=== PATIENT | female | born 1980 | race Caucasian/White ===

== ENCOUNTER 2016-04-30 15:58 | Inpatient (IN) | payer OTHER ==
--- NOTE | ~2016-04-30 | CO ---
Unit #: [id number] #: [id number] Patient: JEANIE FOURNIER [id number] [facility] [address] [place] [address] [id number] I MR#: [id number] NAME: JEANIE FOURNIER. ROOM: P211 Age: 35 Sex: F Admission Date: 04/30/2016 : 1980 Attending Physician: Scout Cordero M.D. Primary Care Physician: Austin Austin M.D. CONSULTATION REPORT ORDERING PROVIDER Dr. Cordero. REASON FOR CONSULTATION Right ear pain. SUBJECTIVE The patient reports that for 1 month she has had right ear pain. She has a history of having cotton stuck in her ear in which she had to have lavage performed to get rid of it. She reports the pain is stabbing and it hurts to move the pinna of her ear. She denies any headache, any runny nose, or any facial congestion. OBJECTIVE Tympanic membrane on both right and left side show scarring, but no acute infection. No object noted in the canal. No redness of the canal. The patient did have tragal pain on the right side, but the remainder of her ear examination was unremarkable. ASSESSMENT Ear pain. PLAN Plan is to administer lidocaine drops as needed for pain. Dictated by... Cordell Peña/jorge TD: 05/03/2016 18:50 JOB #: [id number] Unit #: [id number] #: [id number] Patient: JEANIE FOURNIER CONSULTATION REPORT Page 1 of 1 X IVELISSE MAGALLANES APRN CONSULTATION REPORT
--- NOTE | ~2016-04-30 | PA ---
Unit #: [id number] #: [id number] Patient: JEANIE FOURNIER [id number] [facility] [address] [place] [address] [id number] I MR#: [id number] NAME: JEANIE FOURNIER ROOM: P211 Age: 35 Sex: F Admission Date: 04/30/2016 : 1980 Date of Assessment: Attending Physician: Scout Cordero M.D. Admitting Physician: Scout Cordero M.D. Primary Care Physician: Austin Austin M.D. PSYCHIATRIC ASSESSMENT DATE OF SERVICE 04/30/2016. IDENTIFYING DATA Ms. Fournier is a 35-year-old single white female, who is a resident of [place], [place], was self-referred to the hospital on voluntary basis. CHIEF COMPLAINT "I came in today because I'm detoxing off meth and heroin." HISTORY OF PRESENT ILLNESS Ms. Fournier is a 35-year-old single white female, who was self-referred to the hospital stating that she wants to detox off meth and heroin and "I was doing pretty good. I relapsed about 4 months ago. I was clean from 04/2015 to 12/2015 and my stomach is killing me. My gas is bad and I feel like I'm going to throw up, headache are real bad, and my body is aching real bad. I'm having real bad chills." She was seen to be in significant distress and discomfort and does report increasing depression, anxiety, irritability, disturbed sleep, appetite, poor energy level, psychomotor retardation, feelings of hopelessness and helplessness, and reports relationship with boyfriend is strained. She reports that she has contemplated suicide back in 2009 when she lost her phone, but currently she denies any suicidal ideations, intent, or plan. SUBSTANCE ABUSE HISTORY The patient has extensive history of substance abuse and dependence including alcohol, cocaine, cannabis, opioids, and methamphetamine, and currently it appears that methamphetamine and heroin has been her drug of choice. She reports that she has been using 0.5 g of IV heroin on daily basis and 0.5 g of methamphetamine on a weekly basis. PAST PSYCHIATRIC HISTORY The patient has a history of chemical dependency treatment at [facility], and review of the medical records indicate that currently she is not active in any treatment program, is not seeing a psychiatrist, not taking any psychotropic medications. PAST MEDICAL HISTORY Significant for history of cervical cancer. ALLERGIES Penicillin. Unit #: [id number] #: [id number] Patient: JEANIE FOURNIER PERSONAL AND SOCIAL HISTORY A 35-year-old white female, who reports that she is single and lives alone and has poor social support system. MENTAL STATUS EXAMINATION Young white female, who was casually dressed with a fair personal hygiene, appears to be in no acute distress or discomfort. She was awake and alert on interaction with intact orientation to time, place, and person. Her mood was anxious and depressed with a congruent affect. Her speech was slow and restricted in content. Her thought processes were disorganized with some looseness of association. She denies any suicidal or homicidal ideations, and also denies any auditory or visual hallucinations. Her insight and judgment remain significantly impaired. DIAGNOSTIC IMPRESSION Psychiatric: Opioid dependence, moderate and acute withdrawals; methamphetamine dependence, moderate; opioid-induced mood disorder. Medical: History of cervical cancer. Stressors: Moderate psychosocial stressors. TREATMENT PLAN 1. The patient has a history of substance abuse and mood disorder, and has been decompensating and will need inpatient hospitalization for detoxification, safety, and stabilization. We will start her on detox protocol. We will closely monitor for any worsening withdrawal symptoms. 2. Supportive therapy was provided to the patient. 3. Safe, structured, and nourishing environment will be provided. ESTIMATED LENGTH OF STAY 5 to 7 days. ABILITY TO HELP SELF Limited. WILLINGNESS TO HELP SELF The patient appears to be willing to help self. STRENGTHS 1. Communicative. 2. Cooperative. PROBLEMS 1. Chronic dysphoric symptoms. 2. Chronic chemical dependency. 3. Poor social support system. DISCHARGE CRITERIA This will be contingent upon the patient's ability to show resolution of her depression and anxiety and her ability to stay safe to herself, particularly after discharge from the hospital. Dictated by... Scout Cordero M.D. MOHIT/jorge Unit #: [id number] #: [id number] Patient: JEANIE FOURNIER TD: 05/01/2016 08:18 JOB #: [id number] PSYCHIATRIC ASSESSMENT Page 1 of 1 X Scout Cordero MD PSYCHIATRIC ASSESSMENT
--- NOTE | ~2016-04-30 | PN ---
Unit #: [id number] #: [id number] Patient: JEANIE FOURNIER [id number] [facility] [address] [place] [address] [id number] I MR#: [id number] NAME: JEANIE FOURNIER ROOM: P211 Age: 35 Sex: F Admission Date: 04/30/2016 : 1980 Attending Physician: Scout Cordero M.D. Admitting Physician: Scout Cordero M.D. Primary Care Physician: Mitzy Amaya PROGRESS NOTES DATE OF SERVICE: 05/03/2016 SUBJECTIVE Ms. Fournier is a 35-year-old white female who was seen today and chart was reviewed, and case was discussed with the staff. She reports being worried about having a court day tomorrow. Meanwhile, she has been doing better and has been calmer and has not shown any agitation or aggression and has been taking the medications and tolerating them fairly well. MENTAL STATUS EXAMINATION Middle-aged white female who was casually dressed with a fair personal hygiene and appears to be in no acute distress or discomfort. She was awake and alert on interaction with intact orientation. Her mood was anxious with a congruent affect. She denies any suicidal or homicidal ideation. Her insight and judgment remain slightly impaired. TREATMENT PLAN 1. We will continue on her current medications and treatment protocol. We will monitor her response to the medications and make further adjustments as needed. 2. We will continue to follow up. Dictated by... Mitzy Chavez/jorge TD: 05/05/2016 07:27 JOB #: [id number] [facility] PROGRESS NOTES Page 1 of 1 X Scout Cordero MD PROGRESS NOTE
--- NOTE | ~2016-04-30 | DS ---
Unit #: [id number] #: [id number] Patient: [facility] FOURNIER [id number] [facility] [address] [place] [address] [id number] MR#: [id number] NAME: JEANIE FOURNIER. ROOM: P211 Age: 35 Sex: F Admission Date: 04/30/2016 : 1980 Discharge Date: 05/06/2016 Attending Physician: Scout Cordero M.D. Primary Care Physician: Austin Austin M.D. DISCHARGE SUMMARY IDENTIFYING DATA Ms. Fournier is a 35-year-old single white female who is a resident of [place], [place] and was self-referred to the hospital on a voluntary basis. DISCHARGE DIAGNOSES Psychiatric: Opioid dependence, moderate and acute withdrawals; methamphetamine dependence, moderate; opioid-induced mood disorder. Medical: History of cervical cancer. Stressors: Moderate psychosocial stressors. HISTORY OF PRESENT ILLNESS Please see initial psychiatric evaluation for details. PAST PSYCHIATRIC HISTORY Please see initial psychiatric evaluation for details. PAST MEDICAL HISTORY Please see initial psychiatric evaluation for details. HOSPITAL COURSE The patient was admitted to the adult chemical dependency unit at [facility] and was oriented to the hospital environment. Routine p.r.n. medications were initiated, and she was started back on her home medications. Detox protocol was initiated and initially, the patient was seen to be very agitated, irritable; however, she was able to calm down and was able to participate and cooperate with treatment recommendation and was taking the medications regularly and is tolerating them fairly well and as such, was able to complete the detox and was willing to continue treatment on an outpatient basis. DISCHARGE MEDICATIONS None. DISCHARGE CONDITION Stable. PROGNOSIS Fair. Dictated by... Scout Cordero M.D. Unit #: [id number] #: [id number] Patient: JEANIE FOURNIER IAA/modl TD: 05/06/2016 18:45 JOB #: [id number] DISCHARGE SUMMARY Page 1 of 1 X Scout Cordero MD DISCHARGE SUMMARY
--- NOTE | ~2016-04-30 | PN ---
Unit #: [id number] #: [id number] Patient: JEANIE FOURNIER [id number] [facility] [address] [place] [address] [id number] I MR#: [id number] NAME: JEANIE FOURNIER ROOM: P211 Age: 35 Sex: F Admission Date: 04/30/2016 : 1980 Attending Physician: Scout Cordero M.D. Admitting Physician: Scout Cordero M.D. Primary Care Physician: Mitzy Amaya NOTES DATE 05/02/2016 DISCUSSION Ms. Fournier is a 35-year-old white female who was seen today and chart was reviewed and case was discussed with the staff. She had a rough day yesterday as she was on the detox unit and apparently her boyfriend was there as well and they disclose that. However, (1)___ fought out and the patient was then seen to be getting very agitated, irritable and inappropriate and started making comment that she was going to have sex with every male patient on the unit and was wandering around going to other patients room and was put on sexually acting out precautions. However, in light of her threatening behavior and her boyfriend being on the unit, it was decided that she will be moved to a different floor. On approach by me the patient was seen to be anxious, restless, but then was seen to showing very negative attitude and behavior. Has been confronted about her statements yesterday. She just laughed about it and refused to take responsibility for her agitated behavior as such it remains a poor prognose and we will continue to monitor her response to treatment interventions and we will make further adjustment as needed. Dictated by... Mitzy Chavez/valentina TD: 05/04/2016 04:06 JOB #: [id number] [facility] NOTES Page 1 of 1 X Scout Cordero MD X PROGRESS NOTE
--- NOTE | ~2016-04-30 | PN ---
Unit #: [id number] #: [id number] Patient: JEANIE FOURNIER [id number] [facility] [address] [place] [address] [id number] I MR#: [id number] NAME: JEANIE FOURNIER ROOM: P211 Age: 35 Sex: F Admission Date: 04/30/2016 : 1980 Attending Physician: Scout Cordero M.D. Admitting Physician: Scout Cordero M.D. Primary Care Physician: Mitzy Amaya PROGRESS NOTES DATE OF SERVICE: 05/01/2016 SUBJECTIVE Ms. Fournier is a 35-year-old white female with substance abuse and mood disorder, who was seen today and chart was reviewed and case was discussed with the staff. She has been anxious, withdrawn, and rather seclusive to herself. Meanwhile, she has been cooperative with the treatment recommendations and does appear to be in distress or discomfort she has been taking the medications and tolerating them fairly well. MENTAL STATUS EXAMINATION Young white female, who was casually dressed with a fair personal hygiene, and appears to be in distress or discomfort. She was awake and alert on interaction with intact orientation. Her mood was anxious with a congruent affect. Her speech was slow and goal directed. She denies any suicidal or homicidal ideations. Her insight and judgment remain slightly impaired. TREATMENT PLAN 1. We will continue her on her current medications and treatment protocol. We will monitor her response to the medications and make further adjustments as needed. 2. We will continue to follow up. Dictated by... Mitzy Chavez/jorge TD: 05/01/2016 08:13 JOB #: [id number] Unit #: [id number] #: [id number] Patient: JEANIE FOURNIER PROGRESS NOTES Page 1 of 1 X Scout Cordero MD PROGRESS NOTE
--- NOTE | ~2016-04-30 | PN ---
Unit #: [id number] #: [id number] Patient: JEANIE FOURNIER [id number] [facility] [address] [place] [address] [id number] I MR#: [id number] NAME: JEANIE FOURNIER. ROOM: P211 Age: 35 Sex: F Admission Date: 04/30/2016 : 1980 Attending Physician: Scout Cordero M.D. Admitting Physician: Scout Cordero M.D. Primary Care Physician: Mitzy Amaya PROGRESS NOTES DATE OF SERVICE 05/05/2016 DISCUSSION Ms. Fournier is a 35-year-old white female who was seen today. Chart was reviewed and case was discussed with the staff. She has been anxious and withdrawn though has not shown any agitation or irritability and has been calm and cooperative with the treatment recommendations and appears to be coming out of the detox without any complications. MENTAL STATUS EXAMINATION Young white female who is casually dressed with fair personal hygiene, appears to be in no acute distress or discomfort. She was awake and alert on interaction with intact orientation. Her mood is anxious with congruent affect. She denies any suicidal or homicidal ideations and also denies any auditory or visual hallucinations. Her insight and judgment remain slightly impaired. TREATMENT PLAN 1. We will continue her on her current medications and treatment protocol. We will monitor her response to the medications and make further adjustments as needed. 2. We will continue to follow up. Dictated by... Scout Cordero M.D. IAA/bzg TD: 05/06/2016 11:10 JOB #: [id number] Unit #: [id number] #: [id number] Patient: JEANIE FOURNIER PROGRESS NOTES Page 1 of 1 X Scout Cordero MD PROGRESS NOTE
--- NOTE | ~2016-04-30 | CO ---
Unit #: [id number] #: [id number] Patient: ALLISON FOURNIER [id number] [place] [address] [id number] I MR#: [id number] NAME: ALLISON FOURNIER. ROOM: P211 Age: 35 Sex: F Admission Date: 04/30/2016 : 1980 Attending Physician: Scout Cordero M.D. Primary Care Physician: Austin Austin M.D. Consultation Date: 05/01/2016 CONSULTATION REPORT SUBJECTIVE Allison is a 35-year-old with history of IV drug use. She was admitted with 2 abscesses. Please see H and P dated 04/30/2016 for description and outline of treatment. Dictated by... Edie Drummond P.A.-C. for Mitzy Correia/jorge TD: 05/02/2016 23:45 JOB #: [id number] CONSULTATION REPORT Page 1 of 1 X Edie Drummond CONSULTATION REPORT
--- NOTE | ~2016-04-30 | HP ---
Unit #: [id number] #: [id number] Patient: ALLISON FOURNIER [id number] [place] [address] [id number] I MR#: [id number] NAME: ALLISON FOURNIER. ROOM: P185 Age: 35 Sex: F Admission Date: 04/30/2016 : 1980 Attending Physician: Scout Cordero M.D. Admitting Physician: Scout Cordero M.D. Primary Care Physician: Austin Austin M.D. HISTORY AND PHYSICAL HISTORY OF PRESENT ILLNESS Allison is a 35 year old admitted to [facility] because of her continued drug use. She shoots heroin and methamphetamine. She has had other admissions to this facility for the same. PAST MEDICAL HISTORY 1. Long history of poly-illicit substance abuse to include IV drugs. 2. History of psoriasis. PAST SURGICAL HISTORY Hysterectomy. ALLERGIES Penicillin. SOCIAL HISTORY Smokes 1 pack per day. Drinks alcohol rarely. Admits to a long history of illicit substance abuse to include IV heroin and IV methamphetamine. FAMILY HISTORY Medically noncontributory. REVIEW OF SYSTEMS CONSTITUTIONAL: No fever or chills. HEENT: Denies any sore throat, ear pain or runny nose. CARDIOVASCULAR: Denies chest pain, irregular heart rhythm or palpitations. CHEST: Denies shortness of breath or cough. No hemoptysis. GASTROINTESTINAL: Denies nausea, vomiting, diarrhea or chronic constipation. ENDOCRINE: Denies history of increased thirst or urination. No recent significant weight loss or gain. GENITOURINARY: Denies dysuria, frequency, or hematuria. SKIN: Denies any rashes. HEMATOLOGIC: Denies history of increased bleeding or bruising. MUSCULOSKELETAL: Denies any hot, swollen joints. No generalized muscle pain. NEUROLOGIC: Denies problems with vision or speech. No frequent, severe headaches. No numbness, tingling or weakness in any extremities. Denies loss of bladder or bowel control. CURRENT MEDICATIONS No orders received at the time of this dictation. Unit #: [id number] #: [id number] Patient: ALLISON FOURNIER PHYSICAL EXAMINATION GENERAL: Alert, well-nourished, in no apparent distress. VITAL SIGNS: Blood pressure 110/72, heart rate 80, respirations 16, temperature 98.6. WEIGHT: 164. HEIGHT: 5 feet 4 inches. SKIN: Warm and dry without rash. She has 2 significant abscesses along her left AC area. One area has opened and is draining. The other is intact with 3 small pustules noted. The area is warm. HEENT: Normocephalic. TMs not viewed. Oral and nasal passages clear. Conjunctivae clear. PERRLA. EOMs intact. NECK: Supple without lymphadenopathy or thyromegaly. HEART: Regular rate and rhythm without murmur. LUNGS: Clear. ABDOMEN: Soft, nontender. : Not done. EXTREMITIES: No evidence of cyanosis, clubbing or edema. Moves all without focal deficit. NEUROLOGICAL: Grossly within normal limits. Cranial Nerves: II: Visual morales are intact. III, IV AND : Extraocular movements are intact. Pupils are equal, round and reactive to light. V: Facial sensation is grossly normal. VII: Facial movements and expression are normal. VIII: Auditory acuity grossly intact. IX, X: Uvula is midline. Phonation is normal. XI: Patient shrugs shoulders and turns head normally. XII: Tongue protrudes in the midline. Sensory and Motor Function: Sensory and motor sensation is grossly normal. Motor: moves all extremities well. Coordination: Gait is normal. Deep Tendon Reflexes: Intact. IMPRESSION 1. Psychiatric admission. 2. Long history of IV drug use. 3. Two abscesses at sites of IV drug use. RECOMMENDATIONS PSYCHIATRIC: Per psychiatrist. MEDICAL: 1. See no contraindications to participate in facility's activities. 2. Warm compresses to the area. Start Cleocin 300 mg 1 p.o. t.i.d. Will watch one area that may open in the next 24 to 48 hours or may need I and D. MEDICAL PROGNOSIS Good. MEDICAL CONDITION Stable. Dictated by... Edie Drummond P.A.-C. for Mitzy Correia/[facility] Unit #: [id number] #: [id number] Patient: ALLISON FOURNIER TD: 04/30/2016 17:58 JOB #: [id number] HISTORY AND PHYSICAL Page 1 of 1 X Edie Drummond HISTORY AND PHYSICAL
--- NOTE | ~2016-04-30 | PN ---
Unit #: [id number] #: [id number] Patient: JEANIE FOURNIER [id number] [facility] [address] [place] [address] [id number] I MR#: [id number] NAME: JEANIE FOURNIER. ROOM: P211 Age: 35 Sex: F Admission Date: 04/30/2016 : 1980 Attending Physician: Scout Cordero M.D. Admitting Physician: Scout Cordero M.D. Primary Care Physician: Mitzy Amaya PROGRESS NOTES DATE May 04, 2016 DISCUSSION Ms. Fournier is a 35-year-old white female, who was seen today and chart was reviewed and the case was discussed with the staff. The patient has been anxious, withdrawn, but has not shown any agitation, irritability, or behavioral problems and has been cooperative with the treatment recommendations but has been seclusive to herself and has been reporting some persistent depressive symptoms. MENTAL STATUS EXAMINATION Young white female, who was casually dressed with fair personal hygiene and appears to be in no acute distress or discomfort. She was awake and alert on interaction with intact orientation. Her mood was anxious with a congruent affect. The patient denies any suicidal or homicidal ideations. Her insight and judgment remain slightly impaired. TREATMENT PLAN 1. We will continue her on her current medications and treatment protocol, and will monitor her response, and make further adjustments as needed. 2. We will continue to followup. Dictated by... Mitzy Chavez/davion TD: 05/06/2016 06:10 JOB #: [id number] Unit #: [id number] #: [id number] Patient: JEANIE FOURNIER PROGRESS NOTES Page 1 of 1 X Scout Cordero MD PROGRESS NOTE
[2016-05-01 09:31] LABS: URINE APPEARANCE CLEAR; URINE BILIRUBIN NEG (NEG); URINE BLOOD NEG (NEG); URINE COLOR YELLOW; URINE GLUCOSE NEG (NEG); URINE KETONE NEG (NEG); URINE LEUKOCYTE ESTERASE NEG (NEG); URINE NITRATE NEG (NEG); URINE PH 5.5 (5-8); URINE PROTEIN NEG (NEG); URINE SPECIFIC GRAVITY 1.012 (1.003-1.035); URINE UROBILINOGEN 0.2 MG/DL (NEG)
[2016-05-01 10:08] LABS: AMPHETAMINE POS (NEG); BARBITURATES NEG (NEG); BENZODIAZEPINES NEG (NEG); COCAINE NEG (NEG); MARIJUANA NEG (NEG); OPIATES POS (NEG); TRICYCLIC ANTIDEPRESSANTS NEG (NEG); U METHADONE NEG (NEG)
[2016-05-01 12:38] LABS: BASOPHIL# 0.1 X10e3 (0-0.3); BASOPHIL% 0.9 % (0-2.5); EOSINOPHIL# 0.2 X10e3 (0-0.7); EOSINOPHIL% 1.4 % (0.0-7.0); HEMATOCRIT 39.8 % (35.0-45.0); LYMPHOCYTE# 2.2 X10e3 (1.0-3.5); MEAN CELL VOLUME 90.4 FL (83-96); MEAN CORPUSCULAR HEMOGLOBIN 29.5 PG (28-34); MEAN CORPUSCULAR HGB CONC 32.7 g/dL (30-36); MEAN PLATELET VOLUME 8.7 FL (6.5-11.5); MONOCYTE# 0.8 X10e3 (0-1.0); MONOCYTE% 7.4 % (3.0-12.0); NEUTROPHIL# 7.7 X10e3 (1.5-7.1); NEUTROPHIL% 70.3 % (40-75); PLATELET COUNT 320 X10e3 (140-420); RED CELL DISTRIBUTION WIDTH 14.1 % (11.0-15.5)
[2016-05-01 12:44] LABS: DIFF IND NO
[2016-05-01 13:47] LABS: THYROID STIMULATING HORMONE 0.67 uIU/ml (0.34-5.60)
[2016-05-01 13:49] LABS: ALBUMIN SERUM 3.4 g/dL (3.5-5.0); BILIRUBIN,TOTAL 0.9 mg/dL (0.2-2.0); CREATININE SERUM 0.5 mg/dL (0.6-1.4); GLOM FILT RATE Estimated 127.2 mL/min (>60); PROTEIN TOTAL SERUM 6.9 g/dL (6.0-8.3)
[2016-05-01 13:54] LABS: FREE THYROXIN (T4) 0.99 ng/dL (0.58-1.64)
== END 2016-05-06 10:40 | DRG 897 ==
LOC: P1E 15:58 → P2S 05-01 20:22
PROVIDERS: Psychiatry & Neurology Psychiatry
PROC: HZ2ZZZZ Detoxification Services for Substance Abuse Treatment (ICD-10-PCS; principal; 2016-04-30)
DX: F11.23 Opioid dependence with withdrawal (principal); F15.20 Other stimulant dependence, uncomplicated; L02.419 Cutaneous abscess of limb, unspecified; F11.24 Opioid dependence with opioid-induced mood disorder; F17.210 Nicotine dependence, cigarettes, uncomplicated; Z88.0 Allergy status to penicillin; H92.01 Otalgia, right ear
CPT/HCPCS: 80053; 80307; 81003; 84439; 84443; 84703; 85025; 86592